=== PATIENT | female | born 1990 | race Two or more races ===

== ENCOUNTER 2016-07-06 02:43 | Emergency (ER) | payer MEDICAID ==
[~2016-07-06] VITALS: Ht 160 cm; Wt 72.6 kg
[~2016-07-06 02:43] MED LIST: ALBUTEROL SULF8.5 GM INH; AZITHROMYCIN250 MG ORAL; CIPRO500 MG PO; CIPROFLOXACIN500 M2 ORAL; HYDROCODON-ACE1 EA15 ORAL; IBUPROFEN600 MG PO; KEFLEX500 MG ORAL; MACROBID100 MG ORAL; NITROFURANTOIN100 M2 ORAL; NKM; ONDANSETRON ODT4 MG ORAL; PREDNISONE20 MG ORAL; PRENATAL VITAM1 EAC8 PO; ZOFRAN ODT4 MG ORAL; ZOFRAN4 MG ORAL
--- NOTE | 2016-07-06 03:08 | Emergency Room Report ---
History of Present Illness General Chief Complaint: Lower Back Pain or Injury Source: Patient Present Illness HPI Is a 25-year-old female who presents with lower back pain. I saw her a few days ago. He came in with back pain and she bent over to pick him up. She said she felt a pop in her back. Since then his been progressively worse. Now when she walks she felt pain going down her leg. No incontinence of bowel or urine. No nausea no vomiting. No anesthesia. No other focal deficit. No trauma. Pain is down her left leg. Pain is 9/10. She's been taking Tylenol because she is breast-feeding. Allergies: Coded Allergies: No Known Allergies (Unverified , 07/06/16) Patient History Past Medical History: see triage record, old chart reviewed Past Surgical History: none Pertinent Family History: none Social History: Denies: smoking Last Menstrual Period: n/a Now: No - Immunizations: other Reviewed Nursing Documentation: PMH: Agreed, PSxH: Agreed Nursing Documentation-[facility] Past Medical History: No Stated History Review of Systems Eye: Denies: blurred vision, eye pain ENT: Denies: ear pain, nose congestion, throat swelling Respiratory: Denies: cough, shortness of breath Cardiovascular: Denies: chest pain, palpitations Gastrointestinal: Denies: abdominal pain, diarrhea, nausea, vomiting Musculoskeletal: Reports: back pain, Denies: joint pain Skin: Denies: rash Neurological: Denies: headache, numbness Endocrine: Denies: increased thirst, increased urine Hematologic/Lymphatic: Denies: easy bruising All Other Systems: negative except mentioned in HPI Physical Exam Vital Signs Date Time Temp Pulse Resp B/P Pulse Ox O2 Delivery O2 Flow Rate FiO2 07/06/16 02:55 98.2 82 16 127/70 96 Room Air vitals normal Sp02 EP Interpretation: reviewed, normal General Appearance: well appearing, no apparent distress, alert Head: normocephalic, atraumatic Eyes: bilateral eye EOMI, bilateral eye PERRL ENT: hearing grossly normal, normal pharynx Neck: full range of motion, supple, no meningismus Respiratory: chest non-tender, lungs clear, normal breath sounds Cardiovascular #1: regular rate, rhythm, no murmur Gastrointestinal: normal bowel sounds, non tender, no mass, no organomegaly, no bruit, non-distended Musculoskeletal: normal range of motion, other - Tenderness over the left lower lumbar area. Positive straight leg raise. Neurologic: alert, oriented x3 Psychiatric: mood/affect normal Skin: warm/dry Medical Decision Making Diagnostic Impression: Primary Impression: Low back pain Qualified Codes: M54.42 - Lumbago with sciatica, left side ER Course Patient presents with acute lower back pain with sciatica. CT scan with a small disc bulge of L5-S1. She felt somewhat better but does not want stronger pain medication because she is breast-feeding. No evidence of cauda equina syndrome , spinal epidural abscess or neoplastic process. We'll discharge home. CT/MRI/US Diagnostic Results CT/MRI/US Diagnostic Results : Imaging Test Ordered: CT L-spine Impression read by radiologist: small disc bulge at L5-S1. Last Vital Signs Date Time Temp Pulse Resp B/P Pulse Ox O2 Delivery O2 Flow Rate FiO2 07/06/16 02:55 98.2 82 16 127/70 96 Room Air Status: improved Disposition: HOME, SELF-CARE Condition: Stable Scripts Ibuprofen* (MOTRIN*) 600 Mg Tablet 600 MG ORAL THREE TIMES A DAY, #30 TAB 0 Refills Prov: DANIE PEARCE M.D. 07/06/16 Patient Instructions: Back Pain, Adult Additional Instructions: Followup with your Dr. in 7 days. no heavy lifting. Return if worse. DANIE PEARCE M.D. Jul 06, 2016 03:08
[2016-07-06] MEDS ORDERED: Ketorolac 60mg Inj IM ONE (03:15)
[2016-07-06 03:18] LABS: APPEARANCE,URINE CLEAR; KETONES,URINE NEGATIVE (NEGATIVE); LEUKOCYTE ESTERASE ,URINE 3+ (NEGATIVE); NITRITE,URINE NEGATIVE (NEGATIVE); PH,URINE 6 (4.5-8.0); PROTEIN,URINE NEGATIVE (NEGATIVE); UROBILINOGEN,URINE NORMAL MG/DL (0.0-1.0)
[2016-07-06 03:19] VITALS: BP 127/70
[2016-07-06 03:34] LABS: BACTERIA,URINE OCCASIONAL /HPF; SQUAMOUS EPITHELIAL CELL,UR FEW /LPF (NONE/OCC)
[2016-07-06 04:49] VITALS: BP 122/70
[2016-07-06] MEDS ORDERED: IBUPROFEN600 MG ORAL (04:51)
[2016-07-06 04:56] VITALS: BP 122/70
--- NOTE | 2016-07-06 09:38 | Diagnostic Imaging Report ---
Indication: Back pain Technique: Continuous helical transaxial imaging of the lumbar spine was obtained from the lung bases to the pubic symphysis. No IV contrast was administered. Coronal 2-D reformats were also obtained. Study obtained in a Siemens sensation [address] Total Dose length Product (DLP): [address] Dose Index Volume (CTDIvol): 21 mGy Comparison: None Findings: There is no evidence of an acute fracture or malalignment. Height and configuration of the vertebral bodies and intervertebral discs are within normal limits. The facets are unremarkable. There is no soft tissue swelling. Appendix incidentally noted and appears normal. Impression: Negative lumbar spine CT [facility] has communicated the preliminary results to the Emergency Department. Their findings are largely concordant with this report. The CT scanner at [facility] is accredited by the [employer] and the scans are performed using protocols designed to limit radiation exposure to as low as reasonably achievable to attain images of sufficient resolution adequate for diagnostic evaluation.
== END 2016-07-06 04:57 | disposition home or self-care (01) ==
LOC: EMR 03:36
DX: M54.42 Lumbago with sciatica, left side (principal)
CPT/HCPCS: 72131; 81003; 81025; 96372; 99283

== ENCOUNTER 2016-08-23 13:34 | Emergency (ER) | payer MEDICAID ==
[~2016-08-23] VITALS: Ht 162.6 cm; Wt 72.6 kg
[~2016-08-23 13:34] MED LIST changes: +IBUPROFEN600 MG ORAL
[2016-08-23 14:11] LABS: APPEARANCE,URINE CLEAR; KETONES,URINE NEGATIVE (NEGATIVE); LEUKOCYTE ESTERASE ,URINE 3+ (NEGATIVE); NITRITE,URINE NEGATIVE (NEGATIVE); PH,URINE 8 (4.5-8.0); PROTEIN,URINE NEGATIVE (NEGATIVE); UROBILINOGEN,URINE NORMAL MG/DL (0.0-1.0)
[2016-08-23 14:26] LABS: BACTERIA,URINE OCCASIONAL /HPF; RBC,URINE 0-2 /HPF (0 - 2); SQUAMOUS EPITHELIAL CELL,UR MODERATE /LPF (NONE/OCC); WBC,URINE 15-20 /HPF (0 - 2)
[2016-08-23] MEDS ORDERED: NITROFURANTOIN100 M2 ORAL (14:43)
[2016-08-23] MEDS ORDERED: BENZOYL PEROXID TP (14:47)
[2016-08-23] MEDS ORDERED: CEPHALEXIN500 MG ORAL (14:50)
[2016-08-23 14:55] VITALS: BP 120/70
--- NOTE | 2016-08-23 15:48 | Emergency Room Report ---
History of Present Illness General Chief Complaint: Female Urogenital Problems Source: Patient Present Illness HPI The patient is a 25 old female presenting for possible urinary tract infection. The patient states that she has had increased urinary frequency and dysuria since last night. She states that she has had a urinary tract infection in the past and this feels the same. Pain is described as a 5/10 burning sensation which occurs only with urinating. Pain does not radiate. She denies any other symptoms including hematuria, vaginal discharge, flank pain, nausea, vomiting, fever Allergies: Coded Allergies: No Known Allergies (Unverified , 07/06/16) Patient History Past Medical History: see triage record Pertinent Family History: none Reviewed Nursing Documentation: PMH: Agreed, PSxH: Agreed Nursing Documentation-PMH Past Medical History: No Stated History Review of Systems All Other Systems: negative except mentioned in HPI Physical Exam Vital Signs Date Time Temp Pulse Resp B/P Pulse Ox O2 Delivery O2 Flow Rate FiO2 08/23/16 13:51 98.1 86 16 120/70 98 Room Air Sp02 EP Interpretation: reviewed, normal General Appearance: no apparent distress, alert, GCS 15, non-toxic Head: normocephalic, atraumatic Eyes: bilateral eye PERRL, bilateral eye normal inspection Gastrointestinal: normal bowel sounds, soft, non-distended, no guarding, no rebound, tenderness - suprapubic Genitourinary: normal inspection, no CVA tenderness Neurologic: alert, oriented x3, responsive, motor strength/tone normal, sensory intact, speech normal Psychiatric: judgement/insight normal, memory normal, mood/affect normal, no suicidal/homicidal ideation Skin: normal color, no rash, warm/dry, well hydrated Lymphatic: no adenopathy Medical Decision Making PA Attestation Dr. Ruvalcaba is my supervising physician. Patient management was discussed with my supervising physician Diagnostic Impression: Primary Impression: Acne Qualified Codes: L70.0 - Acne vulgaris Additional Impression: UTI (urinary tract infection) Qualified Codes: N30.00 - Acute cystitis without hematuria ER Course The patient is a 25 old female presenting for possible urinary tract infection. Differential diagnosis considered but not limited to: UTI, BV, yeast infection, pyelonephritis, PID, PE: Vitals WNL. NAD. Abdomen: Normal appearance. Non distended. No ecchymosis. Normal BS. TTP over suprapubic region only. No McBurney point tenderness. No guarding. No CVA tenderness Urinalysis is consistent with urinary tract infection The patient discharged home with a prescription for keflex and is given ER precautions. Pt is currently breast feeding. The patient is also given refill of medications for facial acne vulgaris and will follow up with PMD Laboratory Tests Test 08/23/16 14:00 Urine Color Pale yellow Urine Appearance Clear Urine pH 8 (4.5-8.0) Urine Specific [place] 1.010 (1.005-1.035) Urine Protein Negative (NEGATIVE) Urine Glucose (UA) Negative (NEGATIVE) Urine Ketones Negative (NEGATIVE) Urine Occult Blood Negative (NEGATIVE) Urine Nitrite Negative (NEGATIVE) Urine Bilirubin Negative (NEGATIVE) Urine Urobilinogen Normal MG/DL (0.0-1.0) Urine Leukocyte Esterase 3+ (NEGATIVE) H Urine RBC 0-2 /HPF (0 - 2) Urine WBC 15-20 /HPF (0 - 2) H Urine Squamous Epithelial Cells Moderate /LPF (NONE/OCC) H Urine Bacteria Occasional /HPF (NONE) Urine HCG, Qualitative Negative Lab Results Impression Urinalysis shows white blood cells with occasional bacteria Last Vital Signs Date Time Temp Pulse Resp B/P Pulse Ox O2 Delivery O2 Flow Rate FiO2 08/23/16 14:55 98.1 86 16 120/70 98 Room Air Status: improved Disposition: HOME, SELF-CARE Condition: Improved Scripts Cephalexin* (KEFLEX*) 500 Mg Capsule 500 MG ORAL EVERY 12 HOURS, #14 CAP 0 Refills Prov: RUTH DE LA O P.A. 08/23/16 Benzoyl Peroxide (BENZOYL PEROXIDE) 60 Gm Gel..gram. 1 GM TP BID, #60 GM Prov: RUTH DE LA O P.A. 08/23/16 Referrals: NOT CHOSEN IPA/,REFERRING (PCP) Patient Instructions: Urinary Tract Infection Additional Instructions: I discussed my findings with the patient. All questions and concerns have been answered. Treatment and medication compliance have been addressed. I advised the patient that they need to follow up with PMD in 3-5 days. Return to ED if symptoms worsen, new symptoms arise, or if needed for any reason. Patient verbalized understanding of discharge instructions. RUTH DE LA O August 23, 2016 15:48
== END 2016-08-23 14:57 | disposition home or self-care (01) ==
LOC: EMR 14:27
DX: L70.0 Acne vulgaris (principal); N30.00 Acute cystitis without hematuria
CPT/HCPCS: 81003; 81025; 87086; 99284

== ENCOUNTER 2018-02-10 16:06 | Emergency (ER) | payer SELFPAY ==
[~2018-02-10] VITALS: Ht 160 cm; Wt 79.8 kg
[~2018-02-10 16:06] MED LIST changes: +BENZOYL PEROXID TP; +CEPHALEXIN500 MG ORAL
--- NOTE | 2018-02-10 16:47 | Emergency Room Report ---
History of Present Illness General Chief Complaint: Back Pain-No Injury Source: Patient Present Illness HPI Patient is 27-year-old female presented after increased low back pain. Patient reports having increased suprapubic pain along with low back pain. The patient recently been on antibiotics for urinary tract infection.The patient denied any fever. She had not been vomiting. She reports having prior history of C- sections but denies other past surgical history. Patient denies any dizziness or lightheadedness. She denies any current pain. The patient states she is currently on her menses. Allergies: Coded Allergies: No Known Allergies (Unverified , 07/06/16) Patient History Last Menstrual Period: 02/10/18 Now: No Reviewed Nursing Documentation: PMH: Agreed; PSxH: Agreed Nursing Documentation-PMH Past Medical History: No Stated History Review of Systems All Other Systems: negative except mentioned in HPI Physical Exam Vital Signs Date Time Temp Pulse Resp B/P (MAP) Pulse Ox O2 Delivery O2 Flow Rate FiO2 02/10/18 16:26 98.2 84 16 106/60 96 Room Air General Appearance: well appearing, no apparent distress, alert, GCS 15 Head: normocephalic, atraumatic ENT: hearing grossly normal, normal voice Neck: full range of motion, supple Respiratory: no respiratory distress, speaking full sentences Cardiovascular #1: normal inspection, regular rate, rhythm, no edema Gastrointestinal: normal inspection Genitourinary: no CVA tenderness Musculoskeletal: normal inspection, back normal, no calf tenderness Neurologic: normal inspection, alert, oriented x3, responsive, global clinical leader III-XII nml as tested, normal gait Psychiatric: mood/affect normal Skin: no rash, other - papular lesion to nose, telangectasia Medical Decision Making Diagnostic Impression: Primary Impression: UTI (urinary tract infection) Additional Impression: Rosacea ER Course Patient presented for dysuria. Differential diagnosis included was not limited to appendicitis, urinary tract infection, pelvic inflammatory disease, urethritis, herpes among others. Patient has a benign exam and does not appear to require any further imaging or laboratory testing at this timeThe urinalysis showed evidence of urinary infection. Patient given prescription for Macrobid. She was also given prescription for metronidazole gel for rosacea. The patient is advised to follow up with primary care doctor in 1-2 days. Patient is advised to return if any worsening condition or if any changes in status that are concerning. This report is dictated with [employer] counter dish carrier software which may occasionally lead to discrepancies related to use of this software. Labs Test 02/10/18 16:45 Urine Color Elise Urine Appearance Cloudy Urine pH 7 (4.5-8.0) Urine Specific [place] 1.010 (1.005-1.035) Urine Protein 1+ (NEGATIVE) Urine Glucose (UA) Negative (NEGATIVE) Urine Ketones Negative (NEGATIVE) Urine Blood Negative (NEGATIVE) Urine Nitrite Negative (NEGATIVE) Urine Bilirubin Negative (NEGATIVE) Urine Ictotest Negative (NEGATIVE) Urine Urobilinogen 1 MG/DL (0.0-1.0) Urine Leukocyte Esterase 2+ (NEGATIVE) Urine RBC Tntc /HPF (0 - 2) Urine WBC 15-20 /HPF (0 - 2) Urine Squamous Epithelial Cells Many /LPF (NONE/OCC) Urine Bacteria Moderate /HPF (NONE) Urine HCG, Qualitative Negative (NEGATIVE) Last Vital Signs Date Time Temp Pulse Resp B/P (MAP) Pulse Ox O2 Delivery O2 Flow Rate FiO2 02/10/18 16:26 98.2 84 16 106/60 96 Room Air Status: improved Disposition: HOME, SELF-CARE Condition: Stable Scripts Metronidazole (METRONIDAZOLE) 60 Gm Gel..gram. 1 APPLIC TOPIC TWICE A DAY, #60 GM Prov: Kelvin Ruvalcaba MD 02/10/18 Nitrofurantoin Monohyd/M-Cryst* (MACROBID 100 MG*) 100 Mg Capsule 100 MG ORAL EVERY 12 HOURS, #14 CAP Prov: Kelvin Ruvalcaba MD 02/10/18 Referrals: NOT CHOSEN IPA/,REFERRING (PCP) Kelvin Ruvalcaba MD Feb 10, 2018 16:46
[2018-02-10 17:00] VITALS: BP 106/60
[2018-02-10 17:34] LABS: APPEARANCE,URINE CLOUDY; BILIRUBIN, URINE NEGATIVE (NEGATIVE); COLOR,URINE AMBER; GLUCOSE, URINE (UA) NEGATIVE (NEGATIVE); KETONES,URINE NEGATIVE (NEGATIVE); LEUKOCYTE ESTERASE ,URINE 2+ (NEGATIVE); NITRITE,URINE NEGATIVE (NEGATIVE); PH,URINE 7 (4.5-8.0); PROTEIN,URINE 1+ (NEGATIVE); UROBILINOGEN,URINE 1 MG/DL (0.0-1.0)
[2018-02-10] MEDS ORDERED: NITROFURANTOIN100 M2 ORAL (17:48)
[2018-02-10] MEDS ORDERED: METRONIDAZOLE60 GM TOPIC (17:52)
[2018-02-10 18:01] VITALS: BP 106/60
== END 2018-02-10 18:03 | disposition home or self-care (01) ==
LOC: EMR 16:39
DX: N39.0 Urinary tract infection, site not specified (principal); L71.9 Rosacea, unspecified
CPT/HCPCS: 81003; 81025; 87086; 99283

== ENCOUNTER 2018-05-05 16:41 | Emergency (ER) | payer MEDICAID ==
[~2018-05-05] VITALS: Ht 160 cm; Wt 80.7 kg
[~2018-05-05 16:41] MED LIST changes: +METRONIDAZOLE60 GM TOPIC
--- NOTE | 2018-05-05 16:58 | NUR ---
ED Nurse Note: pt walked in c/o abd pain, epigastric region, denies n/v/d, pt states she took pain med and it helped with pain but still continue to have discomfort. Pt AA&ox4, gcs=15, skin warm and dry, resp even and unlabored, -n/v/d, ambulates w/ steady gait, sinus tachy on monitor, pt reports she is a little bit anxious being in the hospital. pt advised to notify staff if needed assist, ERMD at the bedside, aware pt's condition. will cont monitor.
[2018-05-05 16:59] VITALS: BP 140/87
[2018-05-05] MEDS ORDERED: CHLORTHALIDONE25 MG ORAL (17:07)
[2018-05-05] MEDS ORDERED: COREG25 MG ORAL (17:07)
[2018-05-05] MEDS ORDERED: KLONOPIN0.5 MG ORAL (17:09)
[2018-05-05] MEDS ORDERED: DOXAZOSIN MESYLA2 MG ORAL (17:09)
[2018-05-05] MEDS ORDERED: AMLODIPINE BESYL5 MG ORAL (17:09)
[2018-05-05] MEDS ORDERED: AVAPRO150 MG ORAL (17:09)
--- NOTE | 2018-05-05 17:24 | Emergency Room Report ---
History of Present Illness General Chief Complaint: Abdominal Pain Source: Patient Present Illness HPI Patient presents with epigastric pain radiating up into her chest. She had this when she was with her second child 9 years ago. She took some Tylenol and Mylanta before coming in and says the pain is somewhat better. She rates it at 2/10. It's better when she leans forward and also when she takes pressure off her stomach. She's gained some weight recently. She denies any fevers or chills. There's been no prior cardiac disease. Has no productive cough or sore throat. She's not taking any antacid or H2 micah at this time. She vomited once. There was no blood or coffee-ground stair. Her last period was in February. She doesn't think she is at this time however she's gained some weight and has this problem. She says she gets extremely anxious around doctors and hospitals. When she sees doctors her heart rate goes up. She does not want any medication that causes alteration of her thinking. Allergies: Coded Allergies: No Known Allergies (Unverified , 07/06/16) Patient History Past Medical History: see triage record Social History: Denies: smoking, alcohol use, drug use Social History Narrative At home Last Menstrual Period: 02/18/2018 Now: No : 3 Para: 3 Reviewed Nursing Documentation: PMH: Agreed; PSxH: Agreed Nursing Documentation-PMH Past Medical History: No Stated History Review of Systems All Other Systems: negative except mentioned in HPI Physical Exam Vital Signs Date Time Temp Pulse Resp B/P (MAP) Pulse Ox O2 Delivery O2 Flow Rate FiO2 05/05/18 16:57 98.2 93 15 107/59 97 Room Air Sp02 EP Interpretation: reviewed, normal General Appearance: well appearing, no apparent distress, GCS 15 Head: normocephalic Eyes: bilateral eye normal inspection, bilateral eye PERRL ENT: moist mucus membranes Neck: supple Respiratory: lungs clear, normal breath sounds Cardiovascular #1: regular rate, rhythm Cardiovascular #2: 2+ radial (R) Gastrointestinal: normal inspection, normal bowel sounds, no mass, non- distended, no guarding, no rebound, tenderness, overweight Musculoskeletal: back normal, gait/station normal, normal range of motion Neurologic: alert, oriented x3, grossly normal Psychiatric: anxious Skin: normal inspection, warm/dry Medical Decision Making Diagnostic Impression: Primary Impression: Epigastric pain Additional Impression: UTI (urinary tract infection) Qualified Codes: N39.0 - Urinary tract infection, site not specified ER Course Patient presents with epigastric pain worse with laying down better when leaning forward. Also better with Mylanta and Tylenol. Differential includes pericarditis, GERD, reflux esophagitis, hiatal hernia amongst others. Evaluation will be with EKG, chest x-ray. In addition her periods are delayed and we need to exclude at this time. She'll be treated with Pepcid, Mylanta and viscous lidocaine. EKG was sinus tachycardia. She states she was extremely anxious when this was done. Chest x-ray unremarkable. CBC and CT MP normal. Lipase normal. Urinalysis with pyuria. test negative. When the patient is not disturbed she has no sinus tachycardia. Patient states the pain is gone. Discussed the need for outpatient evaluation. Patient stable for outpatient observation and treatment. Laboratory Tests Test 05/05/18 17:28 Urine Color Yellow Urine Appearance Clear Urine pH 7 (4.5-8.0) Urine Specific [place] 1.005 (1.005-1.035) Urine Protein Negative (NEGATIVE) Urine Glucose (UA) Negative (NEGATIVE) Urine Ketones Negative (NEGATIVE) Urine Blood Negative (NEGATIVE) Urine Nitrite Negative (NEGATIVE) Urine Bilirubin Negative (NEGATIVE) Urine Urobilinogen Normal MG/DL (0.0-1.0) Urine Leukocyte Esterase 1+ (NEGATIVE) H Urine RBC 0-2 /HPF (0 - 2) Urine WBC 5-10 /HPF (0 - 2) H Urine Squamous Epithelial Cells Few /LPF (NONE/OCC) Urine Bacteria Few /HPF (NONE) Urine HCG, Qualitative Negative (NEGATIVE) EKG Diagnostic Results Rate: tachycardiac Rhythm: NSR ST Segments: no acute changes Rhythm Strip Diag. Results EP Interpretation: yes Chest X-Ray Diagnostic Results Chest X-Ray Diagnostic Results : Chest X-Ray Ordered: Yes # of Views/Limited/Complete: 1 View Indication: Chest Pain Interpretation: no consolidation, no effusion, no pneumothorax Impression: Other Electronically Signed by: Electronically signed by Madi Valdovinos MD Last Vital Signs Date Time Temp Pulse Resp B/P (MAP) Pulse Ox O2 Delivery O2 Flow Rate FiO2 05/05/18 19:30 98.2 96 16 127/96 100 Room Air Status: improved Disposition: HOME, SELF-CARE Condition: Improved Scripts Famotidine (PEPCID AC) 20 Mg Tablet 20 MG PO DAILY, #30 TAB Prov: Madi Valdovinos MD 05/05/18 Acetaminophen (Tylenol) 325 Mg Tablet 650 MG ORAL Q6H PRN for Prn Pain/Headache/Temp > 101, #20 TAB 0 Refills Prov: Madi Valdovinos MD 05/05/18 Nitrofurantoin Monohyd/M-Cryst* (MACROBID 100 MG*) 100 Mg Capsule 100 MG ORAL EVERY 12 HOURS, #14 CAP Prov: Madi Valdovinos MD 05/05/18 Madi Valdovinos MD May 05, 2018 17:24
[2018-05-05] MEDS ORDERED: Mylanta II UD 30ml ORAL ONE (17:30)
[2018-05-05] MEDS ORDERED: Lidocaine 2% Visc 15ml soln ORAL ONE (17:30)
--- NOTE | 2018-05-05 17:46 | NUR ---
ED Nurse Note: pt reports pain is better with medication, will cont monitor.
[2018-05-05 17:59] VITALS: BP 146/87
[2018-05-05 18:04] LABS: APPEARANCE,URINE CLEAR; BILIRUBIN, URINE NEGATIVE (NEGATIVE); GLUCOSE, URINE (UA) NEGATIVE (NEGATIVE); KETONES,URINE NEGATIVE (NEGATIVE); LEUKOCYTE ESTERASE ,URINE 1+ (NEGATIVE); NITRITE,URINE NEGATIVE (NEGATIVE); PH,URINE 7 (4.5-8.0); PROTEIN,URINE NEGATIVE (NEGATIVE); UROBILINOGEN,URINE NORMAL MG/DL (0.0-1.0)
[2018-05-05 18:13] LABS: COLOR,URINE YELLOW
[2018-05-05 18:59] VITALS: BP 127/96
--- NOTE | 2018-05-05 19:11 | Diagnostic Imaging Report ---
EXAM: XR Chest, 1 View CLINICAL HISTORY: ABD PAIN TECHNIQUE: Frontal view of the chest. COMPARISON: Chest x-ray dated 10/28/2015 FINDINGS: Lungs: Unremarkable. No consolidation. Pleural space: Unremarkable. No pneumothorax. Heart: Unremarkable. No cardiomegaly. Mediastinum: Unremarkable. Bones/joints: Unremarkable. IMPRESSION: Normal chest x-ray.
[2018-05-05] MEDS ORDERED: TYLENOL325 MG ORAL (19:25)
[2018-05-05] MEDS ORDERED: NITROFURANTOIN100 M2 ORAL (19:25)
[2018-05-05] MEDS ORDERED: PEPCID AC20 M2 PO (19:25)
[2018-05-05 19:30] VITALS: BP 127/96
--- NOTE | 2018-05-05 19:30 | NUR ---
ED Nurse Note: pt was cleared for discharge by ermd, discharge instruction and prescription explained and pt able to verbalize understanding. id band removed. vss, aox4. pt walked with steady gait. pt walk out of the with all belongings.
== END 2018-05-05 19:30 | disposition home or self-care (01) ==
LOC: EMR 17:36
DX: R10.13 Epigastric pain (principal); N39.0 Urinary tract infection, site not specified
CPT/HCPCS: 71045; 81003; 81025; 93005; 99283